=== PATIENT | male | born 2005 | race Caucasian/White ===

== ENCOUNTER 2025-03-19 16:13 | Emergency (ER) | payer BC, SELFPAY ==
[2025-03-19 16:18] VITALS: BP 155/90
[2025-03-19 16:58] LABS: Hematocrit 46.4 % (39.0-52.0); Hemoglobin 16.3 g/dL (13.0-18.0); Mean Corp Hgb Conc. 35.1 g/dL (33.0-37.0); Mean Corpuscular Volume 83.6 fL (80.0-94.0); Nucleated Red Blood Cells % 0 % (-); Platelet Count 304 10^3/uL (130-400); Red Cell Dist. Width 12.3 % (11.5-14.5)
[2025-03-19 17:06] LABS: ALT (SGPT) 20 U/L (0-50); AST (SGOT) 24 U/L (17-59); Albumin 5.3 g/dl (3.5-5.0); Alkaline Phosphatase 72 U/L (38-126); Blood Urea Nitrogen 17 mg/dl (9-20); Calcium 10.1 mg/dl (8.4-10.2); Carbon Dioxide 27 mmol/L (22-30); Chloride 100 mmol/L (98-107); Glucose 79 mg/dl (70-99); Lipase 66 U/L (23-300); Potassium 3.7 mmol/L (3.5-5.1); Sodium 138 mmol/L (135-145); Total Protein 8.5 g/dl (6.3-8.2); eGFR > 60.00
--- NOTE | 2025-03-19 21:29 | ED.GENMED ---
History of Present Illness
General
Chief Complaint: Abdominal Symptoms
Source: patient
Exam Limitations: none
Time Seen by Provider: 03/19/25 18:58
Nursing documentation reviewed up to this point in time: agreed with
History of Present Illness
History of Present Illness:
Patient is here emergency department for evaluation of a lump that he noticed on the right side of his abdomen. States he noticed this yesterday. He denies any associated abdominal pain, nausea, vomiting, diarrhea. No prior history of same.
There is no erythema or pain at site. To ED accompanied by mother for evaluation.
Past History
Past History
ED Past Medical History: None
Review of Systems
Review of Systems
Allergies reviewed?: Yes
All Other Systems: ROS reviewed and negative except as documented in HPI and ROS
Constitutional: Reports no symptoms
EENT: Reports no symptoms
Respiratory: Reports no symptoms
Cardiac: Reports no symptoms
ABD/GI: Reports other (Nonpainful lump noted right side of abdomen adjacent to umbilicus.)
: Reports no symptoms
Musculoskeletal: Reports no symptoms
Skin: Reports no symptoms
Neurological: Reports no symptoms
Psychiatric: Reports no symptoms
Phy Exam
General Physical Exam
General Presentation: well appearing and no apparent distress
General age: appears stated age
General Skin: warm and dry
General Habitus: normal
Cardiovascular Exam
Cardiovascular Exam: regular rate/rhythm
Gastrointestinal Exam
Gastrointestinal Exam: normal bowel sounds, non tender, soft, no organomegaly, non distended and other (A small, firm, nonmobile lump noted to the right side of the abdomen adjacent to umbilicus. Nonpainful. No redness or swelling.)
Musculoskeletal Exam
Musculoskeletal Exam: full ROM and neuro vasc intact
Skin Exam
Skin Exam: normal color, warm/dry, no rash and other (No erythema or swelling noted to right side of abdomen.)
Psychiatric Exam
Psychiatric Exam: normal mood/affect
Course
Orders/Labs/Results
Orders:
Orders
03/19/25 16:39
Complete Blood Count/With Diff Urgent
Comprehensive Metabolic Panel Urgent
Lipase Urgent
03/19/25 19:59
US Abdomen Limited Urgent
Comment:
Reason For Exam: 'lump' right abdomen
Abnormal Lab Results
03/19/25
16:39
Total Protein 8.5 H g/dl
(6.3-8.2)
Albumin 5.3 H g/dl
(3.5-5.0)
03/19/25 16:39
03/19/25 16:39
Vital Signs
Initial and Last Documented VS:
Initial Vital Signs
Temp Pulse Resp BP Pulse Ox
97.5 F 64 20 155/90 100
03/19/25 16:18 03/19/25 16:18 03/19/25 16:18 03/19/25 16:18 03/19/25 16:18
Last Documented Vital Signs
Temp Pulse Resp BP Pulse Ox
97.5 F 64 20 155/90 100
03/19/25 16:18 03/19/25 16:18 03/19/25 16:18 03/19/25 16:18 03/19/25 21:29
*Radiology
Radiology exam reviewed: radiology read reviewed
*Pulse Oximetry
SaO2: 100
Oxygen Mode of Delivery: Room air
Patient hypoxic: no
*Critical Care Note
Total Time (30-74mins, 75-104mins- exclusive of procedures): Not Applicable
Update Note
Update Note:
Patient to the emergency department for evaluation of a nonpainful lump that he noted on the right side of his abdomen adjacent to umbilicus. He noticed this lump yesterday. There is no redness or swelling at site no pain to palpation. Lump is
firm, not mobile. Ultrasound completed. Findings of an echogenic subcutaneous mass measuring 2.6 x 1.1 x 2.1. A smaller echogenic mass was also noted laterally. Findings are not specific to lipomas but considered most likely. Discussed this
finding with patient and mother. Will recommend follow-up with general surgery for further evaluation of this mass. He was given instructions on signs and symptoms to return to the emergency department, notably fever/chills, abdominal pain,
nausea/vomiting/diarrhea, redness or swelling to site. Patient and mother are agreeable to this plan.
ED Attending Note
-
Portions of this chart may have been created with voice recognition software.� Occasional wrong word or��sound alike� substitutions may have occurred due to the inherent limitations of voice recognition software.
Discharge Plan
Departure
Patient Disposition: Home (Routine Discharge)
Date of Disposition: 03/19/25
Time of Disposition: 21:27
Patient with high blood pressure during this ER visit?: No
Condition: Good
Covid-19: Not Applicable
Discharge Problem:
Lipoma
Instructions: Lipoma
Referrals:
NONE,* [Family Provider, Internal Medicine]
Mandeep Cerda MD [Active, Surgical] - Next open appointment
Activity Restrictions/Additional Instructions:
Return to the emergency department for any changes in/worsening of your symptoms.
Interventions
Interventions:
*General Assessment Last Done: 03/19/25 16:18
*Neglect/Abuse Screening Last Done: 03/19/25 16:18
*ED COVID-19 Vaccine History Last Done: 03/19/25 19:21
*ED Influenza Vaccine History Last Done: 03/19/25 19:21
[facility] Risk Assessment Tool Last Done: 03/19/25 19:21
*Risk Screen - Suicide (C-SSRS) Last Done: 03/19/25 19:21
*Nursing Disposition Last Done: 03/19/25 21:37
YK-Lsammd-Aywapiwecv Assessment Last Done: 03/19/25 19:26
ED-Musculoskeletal Assessment Last Done: 03/19/25 19:26
Discharge Date and Time
Discharge Date/Time: 03/19/25 21:39
Print Language: AUSTR[place]
== END 2025-03-19 21:39 | disposition home or self-care (01) ==
LOC: EMR 16:13
PROVIDERS: EMERGENCY PHYSICIAN Student in an Organized Health Care Education/Training Program
DX: D17.1 Benign lipomatous neoplasm of skin and subcutaneous tissue of trunk (principal)
CPT/HCPCS: 99284; 76705; 80053; 83690; 85025